=== PATIENT | male | born 1990 | race Caucasian/White ===

== ENCOUNTER 2024-07-05 11:40 | Emergency (ER) | payer MEDICAID ==
[~2024-07-05] VITALS: Ht 188 cm; Wt 96.8 kg
[2024-07-05] MEDS ORDERED: NAPR-56 PO (16:39)
[2024-07-05 16:40] VITALS: BP 142/80; PULSE 77; RESP 16; TEMP 98.2; O2SAT 99
== END 2024-07-05 16:41 | disposition home or self-care (01) ==
LOC: ER 11:41
DX: S90.02XA Contusion of left ankle, initial encounter (principal); S80.02XA Contusion of left knee, initial encounter; M25.532 Pain in left wrist; V13.4XXA Pedal cycle driver injured in collision with car, pick-up truck or van in traffic accident, initial encounter; Y93.55 Activity, bike riding; Y92.89 Other specified places as the place of occurrence of the external cause; Y99.8 Other external cause status
CPT/HCPCS: 73110; 73564; 73610; 99284